=== PATIENT | male | born 1965 | race Caucasian/White ===

== ENCOUNTER 2021-05-06 08:42 | Day surgery (SDC) | payer OTHER ==
[2021-05-02 09:40] VITALS: BMI 30.6
[2021-05-06] MEDS ORDERED: Lidocaine 1% MPF 2 ML VIAL ONE (09:58)
[2021-05-06] MEDS ORDERED: PROPOFOL 40 ML ONE (11:23)
[2021-05-06] MEDS ORDERED: PROPOFOL 20 ML ONE (11:41)
== END 2021-05-06 12:35 | disposition home or self-care (01) ==
LOC: CSHSDC 08:42
PROVIDERS: ATTEND Internal Medicine Gastroenterology
PROC: 0DBN8ZZ Excision of Sigmoid Colon, Via Natural or Artificial Opening Endoscopic (ICD-10-PCS; principal; 2021-05-06)
DX: Z12.11 Encounter for screening for malignant neoplasm of colon (principal); K63.5 Polyp of colon; K64.9 Unspecified hemorrhoids
CPT/HCPCS: 88305; J2704